=== PATIENT | female | born 1950 | race Caucasian/White ===

== ENCOUNTER → 2017-04-20 | Outpatient (CLI) | payer MEDICARE, OTHER ==
--- NOTE | 2017-04-20 14:03 | KCIC ---
MRI study of the right knee without contrast Clinical indications: Right knee pain. Pain is located anteriorly and medially. Right knee pain has progressed with buckling in the last month. No known injury. TECHNIQUE: Noncontrast MRI sequences of the right knee were performed in all 3 planes. COMPARISON: None available. FINDINGS: The anterior and posterior cruciate ligaments are intact. The quadriceps and patellar tendons are intact. No articular surface tear of the lateral meniscus is seen. There is degenerative signal abnormality of the medial meniscus. There is a horizontal tear of the body of the medial meniscus which extends to the inner articular surface along with mild truncation of this portion of the medial meniscus. The medial collateral ligament is intact and no meniscocapsular separation is seen. The lateral collateral ligament complex and iliotibial band and popliteus tendon are intact. No posterior lateral corner injury is seen. There is severe chondromalacia with loss of the articular cartilage of the medial tibiofemoral joint compartment. There is moderate subchondral stress reaction bone marrow edema. There is moderate spurring of this joint compartment. There is mild chondromalacia and mild spurring of the lateral tibiofemoral joint compartment. There is severe chondromalacia patellae involving the medial patellar facet with significant thinning of the articular cartilage and moderate subchondral stress reaction bone marrow edema and cyst formation. Mild chondromalacia of the trochlea is seen. There is mild degenerative spurring of the patellofemoral joint compartment. The patella is normally aligned. The medial and lateral retinacular ligaments are intact. Small Douglas's cyst is seen measuring 22 mm. Small knee joint effusion is seen. No loose osteochondral body is seen. No muscle edema is seen. 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 Mild primary degenerative osteoarthritis and chondromalacia of the lateral tibiofemoral joint compartment. 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 Degenerative tear and truncation of the body of the medial meniscus. Electronically signed by: Nehemias Bran MD (04/20/2017 1:59 PM)
== END | disposition home or self-care (01) ==
LOC: KCIC MRI 11:17
PROVIDERS: ATTEND Orthopaedic Surgery
DX: M17.11 Unilateral primary osteoarthritis, right knee (principal)
CPT/HCPCS: 73721

== ENCOUNTER 2018-03-14 21:24 | Emergency (ER) | payer MEDICARE, OTHER ==
[2018-03-14 21:48] LABS: ADD MAN DIFF? NO
[2018-03-14 21:52] LABS: BASO % 1 % (0-3); EOS # 0.1 x10^3/uL (0.0-0.7); EOS % 1 % (0-3); HEMATOCRIT 40.2 % (36.0-47.0); LYMPH # 2.9 x10^3/uL (1.0-4.8); LYMPH % 35 % (24-48); MEAN CORPUSCULAR HEMOGLOBIN 33 pg (25-35); MEAN CORPUSCULAR HGB CONC 35 g/dL (31-37); MEAN CORPUSCULAR VOLUME 96 fL (79-100); MONO # 0.8 x10^3/uL (0.0-1.1); MONO % 9 % (0-9); NEUT # 4.5 x10^3uL (1.8-7.7); NEUT % 55 % (31-73); PLATELET COUNT 270 x10^3/uL (140-400); RED BLOOD COUNT 4.21 x10^6/uL (3.50-5.40); RED CELL DISTRIBUTION WIDTH 12.5 % (11.5-14.5); WHITE BLOOD COUNT 8.3 x10^3/uL (4.0-11.0)
[2018-03-14 22:02] LABS: ANION GAP 12 (6-14); BLOOD UREA NITROGEN 14 mg/dL (7-20); BUN/CREATININE RATIO 18 (6-20); CARBON DIOXIDE 26 mmol/L (21-32); CHLORIDE 102 mmol/L (98-107); CREATININE 0.8 mg/dL (0.6-1.0); GFR 70.9; GLUCOSE 120 mg/dL (70-99); POTASSIUM 3.6 mmol/L (3.5-5.1); SODIUM 140 mmol/L (136-145)
[2018-03-14 22:08] LABS: ALBUMIN 3.8 g/dL (3.4-5.0); ALBUMIN/GLOBULIN RATIO 1.1 (1.0-1.7); ALK PHOS 91 U/L (46-116); ALT (SGPT) 27 U/L (14-59); AST (SGOT) 16 U/L (15-37); TOTAL BILIRUBIN 0.5 mg/dL (0.2-1.0); TOTAL PROTEIN 7.3 g/dL (6.4-8.2)
[2018-03-14 22:10] LABS: TROPONINI < 0.017 ng/mL (0.000-0.055)
[2018-03-14] MEDS: IV NORMAL SALINE 1000ML BAG 1,000 ML IV (22:34)
== END 2018-03-15 00:31 | disposition home or self-care (01) ==
LOC: ER 03-15 00:31
DX: R07.81 Pleurodynia (principal); I10 Essential (primary) hypertension; Z90.49 Acquired absence of other specified parts of digestive tract
CPT/HCPCS: 36415; 71045; 80053; 84484; 85025; 93005; 96360; 99285-25; J7030

== ENCOUNTER → 2018-04-12 | Outpatient (CLI) | payer MEDICARE, OTHER ==
[~2018-04-12] MED LIST: REGADENOSON 0.4 MG/5 ML DISP.SYRIN. IV
== END | disposition home or self-care (01) ==
LOC: NM 08:10
DX: M62.838 Other muscle spasm (principal); R07.89 Other chest pain
CPT/HCPCS: 78452; 93017; 96374; 96375; 96376; A9500; J2785

== ENCOUNTER → 2018-12-18 | Outpatient (CLI) | payer MEDICARE, OTHER ==
[2018-03-15 00:02] VITALS: BP 114/57
[~2018-12-18] MED LIST changes: +AMLO10TA6 PO; +LOSA1TAB25 PO; +OMEP20TA63 PO; -REGADENOSON 0.4 MG/5 ML DISP.SYRIN. IV
[2018-12-18 12:15] LABS: BILIRUBIN,URINE NEGATIVE (NEG); CLARITY,URINE CLEAR; COLOR,URINE YELLOW; NITRITE,URINE NEGATIVE (NEG); PH,URINE 6.5; PROTEIN,URINE NEGATIVE (NEG-TRACE); UROBILINOGEN,URINE 0.2 mg/dL (0.2 mg/dL)
[2018-12-18 12:16] LABS: BASO # 0.1 x10^3/uL (0.0-0.2); BASO % 1 % (0-3); EOS % 0 % (0-3); HEMATOCRIT 45.7 % (36.0-47.0); HEMOGLOBIN 15.3 g/dL (12.0-15.5); LYMPH # 1.6 x10^3/uL (1.0-4.8); LYMPH % 32 % (24-48); MEAN CORPUSCULAR HEMOGLOBIN 32 pg (25-35); MEAN CORPUSCULAR HGB CONC 34 g/dL (31-37); MEAN CORPUSCULAR VOLUME 96 fL (79-100); MONO # 0.4 x10^3/uL (0.0-1.1); MONO % 8 % (0-9); NEUT # 2.9 x10^3uL (1.8-7.7); NEUT % 59 % (31-73); PLATELET COUNT 228 x10^3/uL (140-400); RED BLOOD COUNT 4.77 x10^6/uL (3.50-5.40); RED CELL DISTRIBUTION WIDTH 12.6 % (11.5-14.5)
[2018-12-18 12:27] LABS: PROTHROMBIN TIME PATIENT 12.2 SEC (11.7-14.0)
[2018-12-18 12:32] LABS: RBC,URINE 0 /HPF (0-2); WBC,URINE 0 /HPF (0-4)
[2018-12-18 12:33] LABS: BACTERIA,URINE 0 /HPF (0-FEW)
[2018-12-18 12:34] LABS: ALBUMIN 4.1 g/dL (3.4-5.0); CALCIUM 9.7 mg/dL (8.5-10.1); CREATININE 0.8 mg/dL (0.6-1.0); GFR 70.9; POTASSIUM 3.5 mmol/L (3.5-5.1)
--- NOTE | 2018-12-18 12:47 | RAD ---
Chest radiograph 12/18/2018 12:28 PM INDICATION: Preoperative right knee replacement COMPARISON: None available TECHNIQUE: Frontal and lateral views of the chest are provided. FINDINGS: The cardiomediastinal silhouette is within normal limits. There are no pleural effusions. There is no pulmonary vascular congestion. There is no pneumothorax. The lungs are clear. Minimal chronic height loss is identified in a lower thoracic segment. IMPRESSION: No acute cardiopulmonary process. Electronically signed by: Gilda Toth MD (12/18/2018 12:43 PM) [facility]
--- NOTE | 2018-12-18 15:17 | EKG ---
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
--- NOTE | 2018-12-22 10:30 | NUR ---
FAXED PRE - OP TEST REPORTS TO -PCP 12/19/2018 AT 0956 AND 1148 12/19/2018 FOR REVIEW AND RECEIVED TRANSMITTAL CONFIRMATIONS IN BOTH OFFICES. 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
== END | disposition home or self-care (01) ==
LOC: SURGPAT 11:20
PROVIDERS: ATTEND Orthopaedic Surgery
DX: Z01.818 Encounter for other preprocedural examination (principal); M17.11 Unilateral primary osteoarthritis, right knee; I45.19 Other right bundle-branch block; R94.31 Abnormal electrocardiogram [ECG] [EKG]; R29.890 Loss of height
CPT/HCPCS: 36415; 71046; 80048; 81001; 82040; 82306; 85025; 85610; 85651; 85730; 87641; 93005

== ENCOUNTER 2019-01-21 16:39 | Emergency (ER) | payer MEDICARE, OTHER ==
[~2019-01-21] VITALS: Ht 157.5 cm; Wt 59.9 kg
[~2019-01-21 16:39] MED LIST changes: -AMLO10TA6 PO; +AMLO10TA8 PO; +ASPI325T11 PO; +OXYC1TAB22 PO
[2019-01-21 18:29] LABS: BASO % 1 % (0-3); EOS # 0.1 x10^3/uL (0.0-0.7); EOS % 1 % (0-3); HEMATOCRIT 38.2 % (36.0-47.0); HEMOGLOBIN 12.8 g/dL (12.0-15.5); LYMPH # 1.7 x10^3/uL (1.0-4.8); LYMPH % 38 % (24-48); MEAN CORPUSCULAR HEMOGLOBIN 32 pg (25-35); MEAN CORPUSCULAR HGB CONC 34 g/dL (31-37); MEAN CORPUSCULAR VOLUME 94 fL (79-100); MONO # 0.5 x10^3/uL (0.0-1.1); MONO % 10 % (0-9); NEUT # 2.2 x10^3uL (1.8-7.7); NEUT % 50 % (31-73); PLATELET COUNT 292 x10^3/uL (140-400); RED BLOOD COUNT 4.05 x10^6/uL (3.50-5.40); RED CELL DISTRIBUTION WIDTH 12.9 % (11.5-14.5); WHITE BLOOD COUNT 4.5 x10^3/uL (4.0-11.0)
[2019-01-21 18:37] LABS: CALCIUM 9.4 mg/dL (8.5-10.1); CREATININE 0.9 mg/dL (0.6-1.0); GFR 61.7; POTASSIUM 3.8 mmol/L (3.5-5.1)
--- NOTE | 2019-01-21 19:10 | RAD ---
Ultrasound venous system of the right leg 01/21/2019. Reason for exam: Leg swelling. Knee surgery about a month ago. Color Doppler and spectral waveform analysis was performed along with real-time grayscale technique. The deep venous system of the right lower extremity shows normal compressibility and normal Doppler flow and augmentation of flow extending from the common femoral segment to the popliteal segment. The visualized calf veins also appear normal. Note is made of some fluid collected behind the knee joint there is also some subcutaneous edema. IMPRESSION: No evidence of DVT. Electronically signed by: Isaias Forbes Jr., MD (01/21/2019 7:07 PM) [facility]
[2019-01-21 19:30] VITALS: BP 158/67
--- NOTE | 2019-01-21 19:48 | PHYS DOC ---
Past Medical History Past Medical History: Hypertension Past Surgical History: Appendectomy Alcohol Use: Occasionally Drug Use: None Adult General Chief Complaint Chief Complaint: LOWER EXT PAIN HPI HPI Patient is a 69 year old female with a history of hypertension who presents to the ED today complaining of pain mild in nature and intermittent from the right knee to the right ankle that began 2 days ago. Patient denies any trauma. She states a month ago she had right knee replacement. She states she was sent to the ED by Dr. Fisher for a venous doppler to r/o DVT. Review of Systems Review of Systems Constitutional: Denies fever or chills [] Musculoskeletal: Reports right lower extremity pain Integument: Denies rash or skin lesions [] Neurologic: Denies headache, focal weakness or sensory changes [] All other systems were reviewed and found to be within normal limits, except as documented in this note. Allergies Allergies Allergies Coded Allergies Type Severity Reaction Last Updated Verified No Known Drug Allergies 12/26/18 No Physical Exam Physical Exam Constitutional: Well developed, well nourished, no acute distress, non-toxic appearance. [] Skin: Warm, dry, no erythema, no rash. [] Back: No tenderness, no CVA tenderness. [] Extremities: Anterior right knee with a well approximated laceration site, no redness over the laceration site, mild swelling noted over the knee. Mild swelling also noted throughout the right lower extremity, negative Homans sign bilaterally. +2 bilateral pedal pulses. Full passive range of motion to the right lower extremity. +2 right pedal pulse. Cap refill less than 2 seconds to the right toes, Neurologic: Alert and oriented X 3, normal motor function, normal sensory function, no focal deficits noted. [] Psychologic: Affect normal, judgement normal, mood normal. [] Current Patient Data Vital Signs Vital Signs Date Time Temp Pulse Resp B/P (MAP) Pulse Ox O2 Delivery O2 Flow Rate FiO2 01/21/19 17:45 98.3 95 18 176/74 (108) 95 Room Air 98.3 Lab Values Laboratory Tests Test 01/21/19 18:20 White Blood Count 4.5 x10^3/uL (4.0-11.0) Red Blood Count 4.05 x10^6/uL (3.50-5.40) Hemoglobin 12.8 g/dL (12.0-15.5) Hematocrit 38.2 % (36.0-47.0) Mean Corpuscular Volume 94 fL (79-100) Mean Corpuscular Hemoglobin 32 pg (25-35) Mean Corpuscular Hemoglobin Concent 34 g/dL (31-37) Red Cell Distribution Width 12.9 % (11.5-14.5) Platelet Count 292 x10^3/uL (140-400) Neutrophils (%) (Auto) 50 % (31-73) Lymphocytes (%) (Auto) 38 % (24-48) Monocytes (%) (Auto) 10 % (0-9) H Eosinophils (%) (Auto) 1 % (0-3) Basophils (%) (Auto) 1 % (0-3) Neutrophils # (Auto) 2.2 x10^3uL (1.8-7.7) Lymphocytes # (Auto) 1.7 x10^3/uL (1.0-4.8) Monocytes # (Auto) 0.5 x10^3/uL (0.0-1.1) Eosinophils # (Auto) 0.1 x10^3/uL (0.0-0.7) Basophils # (Auto) 0.0 x10^3/uL (0.0-0.2) Sodium Level 138 mmol/L (136-145) Potassium Level 3.8 mmol/L (3.5-5.1) Chloride Level 102 mmol/L (98-107) Carbon Dioxide Level 27 mmol/L (21-32) Anion Gap 9 (6-14) Blood Urea Nitrogen 19 mg/dL (7-20) Creatinine 0.9 mg/dL (0.6-1.0) Estimated GFR (Cockcroft-Gault) 61.7 Glucose Level 109 mg/dL (70-99) H Calcium Level 9.4 mg/dL (8.5-10.1) Laboratory Tests 01/21/19 18:20 Laboratory Tests 01/21/19 18:20 EKG EKG [] Radiology/Procedures Radiology/Procedures []PROCEDURE: VENOUS LOWER EXTREMITY RIGHT Ultrasound venous system of the right leg 01/21/2019. Reason for exam: Leg swelling. Knee surgery about a month ago. Color Doppler and spectral waveform analysis was performed along with real-time grayscale technique. The deep venous system of the right lower extremity shows normal compressibility and normal Doppler flow and augmentation of flow extending from the common femoral segment to the popliteal segment. The visualized calf veins also appear normal. Note is made of some fluid collected behind the knee joint there is also some subcutaneous edema. IMPRESSION: No evidence of DVT. Electronically signed by: Linda Forbes Jr., MD (01/21/2019 7:07 PM) [facility] DICTATED and SIGNED BY: LINDA FORBES Jr, MD DATE: 01/21/191905 Course & Med Decision Making Course & Med Decision Making Pertinent Labs and Imaging studies reviewed. (See chart for details) This is a 69-year-old female patient presenting to the ED today for venous Doppler of the right lower extremity to rule out DVT, patient had right knee replacement a month ago. Has had pain and swelling from the knee to the ankle for 2 days. Venous Doppler of the right lower extremity is negative for DVT noted for some fluid collection behind the knee joint there is also and some subcutaneous edema. Patient was discharged to home, ice elevation encouraged, encouraged to contact the orthopedic doctor tomorrow and follow-up as an outpatient. Dragon Disclaimer Dragon Disclaimer This electronic medical record was generated, in whole or in part, using a voice recognition dictation system. Departure Departure Impression: Primary Impression: Pain of right lower extremity Additional Impression: Edema Disposition: 01 HOME, SELF-CARE Condition: STABLE Referrals: GEORGES MCCOLLUM MD (PCP) MAURICE FISHER MD follow up with your doctor next week Patient Instructions: Edema, Knee Pain, [id number] Additional Instructions: You were evaluated in the emergency room for right lower extremity pain, your venous Doppler of the right lower extremity was negative for blood clot. You do have some fluid collecting behind his knee, please follow-up with Dr. Fisher for this. In the meantime try to ice and elevate the extremity. Problem Qualifiers Additional Impression: Edema Edema type: unspecified Qualified Codes: R60.9 - Edema, unspecified ERICK BROWN APPLIANCE TECHNICIAN Jan 21, 2019 19:48
== END 2019-01-21 19:58 | disposition home or self-care (01) ==
LOC: ER 16:39
DX: M25.561 Pain in right knee (principal); M25.571 Pain in right ankle and joints of right foot; R60.0 Localized edema; I10 Essential (primary) hypertension; Z96.651 Presence of right artificial knee joint; Z90.89 Acquired absence of other organs
CPT/HCPCS: 36415; 80048; 85025; 93971; 99284-25